=== PATIENT | female | born 1965 | race Caucasian/White ===

== ENCOUNTER 2024-11-03 14:24 | Outpatient (CLI) | payer BC, SELFPAY ==
--- NOTE | ~2024-11-03 | US_ITS ---
EXAMINATION: US pelvic complete INDICATION: Postmenopausal bleeding Comparison:No prior studies for comparison. TECHNIQUE: Multiple transabdominal sonographic images of the pelvis performed. FINDINGS: The uterus measures 6.7 x 2.8 x 3.8 cm. The endometrial complex measures 3 mm. The ovaries are not visualized. There is no free fluid in the pelvis. There are no abnormal masses s een on either side. IMPRESSION: 1. Unremarkable pelvic ultrasound. Reviewed, dictated and finalized at location A.
== END 2024-11-03 14:25 | disposition home or self-care (01) ==
LOC: MICIMG 14:26
PROVIDERS: PCP Family Medicine; Visit Provider Obstetrics & Gynecology Gynecology
DX: N95.0 Postmenopausal bleeding (principal)
CPT/HCPCS: 76856